=== PATIENT | male | born 1970 | race Caucasian/White ===

== ENCOUNTER → 2022-08-07 07:55 | Outpatient (CLI) | payer OTHER, SELFPAY ==
--- NOTE | 2022-08-07 07:57 | DI.NM.S_ITS ---
PROCEDURE: NM SENTINEL NODE W IMAGING RADIOPHARMACEUTICAL: 0.5 mCi Millipore filtered Tc-99m sulfur colloid. INDICATIONS: right arm melanoma COMPARISON: None. TECHNIQUE: Written informed consent was obtained. The area around the region of concern on the right arm was prepped and draped in a sterile fashion. Tc-99m sulfur colloid was injected intra-dermally and subcutaneously around the biopsy scar. Images were obtained approximately 60 minutes after tracer injection. FINDINGS: Right axillary sentinel node. IMPRESSION: Administration of subdermal radiotracer around the site of melanoma for intra-operative sentinel lymph node localization. Dictated by: Crescencio Keyes M.D. on 08/07/2022 at 11:15 Transcribed by: ASHOK on 08/07/2022 at 11:16 Approved by: Crescencio Keyes M.D. on 08/07/2022 at 16:39
== END ==
PROVIDERS: PCP Nurse Practitioner; Referring Provider Surgery; Visit Provider Surgery
DX: C43.61 Malignant melanoma of right upper limb, including shoulder (principal)
CPT/HCPCS: 78195; A9541

== ENCOUNTER 2022-08-07 08:32 | Day surgery (SDC) | payer OTHER, SELFPAY ==
[2022-08-02 07:44] VITALS: BMI 29.5
[2022-08-07] VITALS (9 sets, daily range): BP systolic 95–141; BP diastolic 59–86; PULSE 79–110; RESP 16–169; TEMP 36–36.7; O2SAT 4–98; BMI 29.5
--- NOTE | 2022-08-07 | PATH_ITS ---
[facility] Accession Number: [id number] No. of containers..02 Tissue . 01 Material submitted: . PART A: axilla - RIGHT AXILLARY SENTINAL NODES X 3 PART B: arm - RIGHT ARM MELANOMA STITCH PROXIMAL . 01 Diagnosis: A. Right Axillary Stigler Nodes, Excisions: Minute clusters of Melan-A positive cells involving 2 out of 3 lymph nodes, final diagnosis is pending an outside expert consultation which will be reported in an addendum; see comment. . B. Right Arm, Excision: No evidence of residual malignant melanoma identified in sections examined. Dermal scar, consistent with procedural site changes. See comment. [facility] 08/20/2022 1757 Local . 01 Comment: A-B. Melan-A and HMB-45 stains are performed on blocks A1, A2, A3, and A4. Within blocks A2 and A3 there are minute clusters of Melan-A positive cells which show focal SOX-10 expression and are negative for HMB-45 expression. The Melan-A positive cells involve the capsular space and possible capsular lymphovascular space in block A2 and appear intraparenchymal in block A3. These cells are only identified on the melanocytic marker stains and not seen on the H/E stains, limiting evaluation for the presence of atypia. Part A will be sent for an outside expert consultation, with results to follow in an addendum. . Within the main excision specimen (part B) Melan-A stains are performed on blocks B1, B2, B3, B4, B5, and B6, which support the above diagnosis. . Blocks A2 and A3 have been reviewed by Dr. Brenda Kwong. . . * This test was developed and its performance characteristics determined by [facility]. It has not been cleared or approved by the U.S. Food and Drug Administration. The FDA has determined that such clearance or approval is not necessary. This test is used for clinical purposes. It should not be regarded as investigational or for research. . 01 Electronically signed: . Aniket Castro MD, Dermatopathologist NPI- [id number] . 01 Gross description: . A. Received in formalin, labeled with the patient's name, , and right sentinel nodes x3, and consists of two yellow, lobulated soft tissue fragments aggregating to 3.5 x 2.4 x 1.2 cm. Palpation reveals three lymph node candidates ranging from 0.6 cm to 1.5 cm in greatest dimension. The lymph node candidates are submitted entirely as follows: A1-A2: Single serially sectioned lymph node candidate. A3: Single bisected lymph node candidate. A4: Single intact lymph node candidate. B. Received in formalin, labeled with the patient's name, , and right arm melanoma stitch proximal, and consists of an oriented ellipse of skin with a suture half way between one edge and one tip designating proximal per the requisition. The nearest tip is now arbitrarily designated 12 o'clock. The specimen measures 3.3 cm from 12 o'clock to 6 o'clock, 2.6 cm from 3 o'clock to 9 o'clock, and is excised to a depth of 1.3 cm. The specimen is inked as follows: 12-3 o'clock - orange, 3-6 o'clock - blue, 6-9-12 o'clock - green. The specimen is serially sectioned from 12 o'clock to 6 o'clock into six slices and is submitted entirely as follows: B1: 12 o'clock tip. B2-B5: Sequential central slices (slice with suture in cassette B2). B6: 6 o'clock tip. See diagram, photographs taken. ([id number]) /[facility] 08/09/2022 0335 Local . 01 Pathologist provided ICD-10: C43.9 . 01 CPT . 406711, 454417, S15476, N34657 Specimen Comment: A courtesy copy of this report has been sent to [phone] Performed at: 01 [facility] [address] [place] [address] [address] [facility], [place], [place] [id number] MD Cesar Hughes MD Phone: [phone]
[2022-08-07] MEDS: LACTATED RINGERS 1,000 ML 42 ML IV ×2 (08:41→13:21)
--- NOTE | 2022-08-07 11:33 | PM.PREOP ---
Pre-operative Note COVID-19 COVID-19 status: Not tested Interval Note History & Physical reviewed/Exam performed by Physician: Yes Changes to H&P: No ASA Class (for procedural sedation): II
[2022-08-07] MEDS: CEFAZOLIN 2 GM/100 ML PREMIX 100 ML IV (12:30)
--- NOTE | 2022-08-07 12:53 | SUR.OPER ---
Supine on padded OR bed, head on pillow, arms secured on padded arm boards at <90 degrees abduction, legs uncrossed, safety belt at thigh
[2022-08-07] MEDS: BUPIVACAINE 0.25% (PF) VIAL 30 ML INJ (13:09)
--- NOTE | 2022-08-07 13:33 | SUR.OPER ---
Count ratio 3068 node/183
--- NOTE | 2022-08-07 14:58 | PM.OP.1 ---
Operative Date/Time/Diagnoses Date of procedure: 08/07/22 Time of procedure: 14:59 Pre-op diagnosis: Right arm melanoma Post-op diagnosis: same Procedure & Clinicians Procedure: 1. Wide local excision of right arm melanoma with rotational flap closure 2. [place] lymph node biopsy Same procedure as scheduled: Yes Surgeon: Daniella Castellanos Anesthesia Type: General Operative Notes Procedure in detail: The patient had lymphoscintigraphy injected prior to surgery. This patient was marked in the preoperative area and consent was obtained. The patient was brought into the operating room, placed on the table in the supine position and general anesthesia was induced. 5 mL of methylene blue were injected into the skin and subcutaneous adipose tissue just proximal to the melanoma. The right arm and right axilla were prepped and draped in the usual fashion and a time-out was performed. We started with a sentinel lymph node biopsy. There was a strong signal high in the axilla and a transverse incision was made at the hairline. We dissected up to the axillary vein which was well visualized. Two large lymph nodes were resected and they had a strong signal but it was not quite 10 fold above the background so we continued to search and a third lymph node was found with a strong signal as well. The combined count for the 3 lymph nodes ex vivo was 3000 and the background was 183. We then irrigated the axillary wound and closed in layers using multiple interrupted 3-0 Vicryl dermal sutures followed by a running 4-0 Monocryl subcuticular closure. Next we turned to the arm. We marked a 1 cm margin around the shave biopsy site using a ruler. We then excised the shave biopsy site down to the fascia. A single silk stitch was used to daniella the proximal aspect of the specimen and it was passed off. We then created a rotational flap taking skin and subcutaneous tissue from over the the triceps lifting the flap completely off the fascia. There was a neurovascular bundle that was penetrating through the fascia into the flap that was left intact. The flap was able to fill the wound well tension. Additional local was injected into the fascia and then the flap was closed using multiple interrupted 3-0 and 2-0 dermal Vicryl sutures. Finally, the skin was closed with multiple 2-0 nylon mattress sutures. Xeroform and Telfa were applied over the incision and gauze were applied over the Telfa followed by a loose Coban wrap. EBL: 20 mL Specimens: Right axillary sentinel lymph nodes and right arm melanoma Post-operative Condition: stable Disposition: PACU
[2022-08-07] MEDS: ALBUTEROL/IPRATROPIUM 3 ML AMPUL INH (15:03)
[2022-08-07] MEDS: OXYCODONE/ACETAMINOPHEN 5/325 TABLET 1 TAB PO (15:17)
--- NOTE | 2022-08-07 15:26 | SUR.PHASEI ---
pt given incentive spirometer and did it well and O2 sat increased. Pt was given percocett for pain.
== END 2022-08-07 16:11 | disposition home or self-care (01) ==
PROVIDERS: PCP Nurse Practitioner; Referring Provider Surgery; Visit Provider Surgery
PROC: (CPT 38525; principal; 2022-08-07 11:45)
DX: C43.61 Malignant melanoma of right upper limb, including shoulder (principal)
CPT/HCPCS: 38525; 14020; 78195; A9541; J0690; J1100; J2250; J2405; J2704; J3010; J3490